=== PATIENT | male | born 2000 | race African-American/Black ===

== ENCOUNTER 2019-04-14 18:56 | Emergency (ER) | payer OTHER ==
[~2019-04-14] VITALS: Ht 182.9 cm; Wt 72.6 kg
[2019-04-14] MEDS ORDERED: BUPIVACAINE MPF 0.5% 10 ML VIAL. IJ ONE (19:30)
[2019-04-14] MEDS ORDERED: HYDROcodone/APAP 5/325MG 1 TAB TABLET PO ONE (19:30)
[2019-04-14 19:37] VITALS: BP 140/84
[2019-04-14] MEDS ORDERED: DIPHTH,PERTUSS(ACELL),TET TOX 0.5 ML DISP.SYRIN. VAX IM ONE (21:15)
--- NOTE | 2019-04-14 21:30 | PHYS DOC ---
Past Medical History Past Medical History: No Pertinent History (KVNG MAHMOOD APRN) Past Surgical History: No Surgical History (KVNG MAHMOOD APRN) Alcohol Use: Occasionally Drug Use: Marijuana (KVNG MAHMOOD APRN) Adult General Chief Complaint Chief Complaint: TOE PROBLEM HPI HPI Patient is a 19 year old AA male who presents to the ER with complaints of left great toe pain after dropping a refrigerator onto his left great toe prior to arrival. Pt denies any numbness or tingling of his foot, he denies any foot pain or decreased ROM. Currently, his pain is a 10/10 on the pain scale he did not take any medications prior to arrival. (KVNG MAHMOOD APRN) Review of Systems Review of Systems Constitutional: Denies fever or chills [] Musculoskeletal: see history of present illness Integument: Denies rash or skin lesions [] Neurologic: Denies headache, focal weakness or sensory changes [] (KVNG MAHMOOD APRN) Current Medications Current Medications Current Medications Medications (Trade) Dose Ordered Sig/Donna Start Time Stop Time Status Last Admin Dose Admin Acetaminophen/ Hydrocodone Bitart (Lortab 5/325) 1 tab 1X ONCE 04/14/19 19:30 04/14/19 19:44 DC 04/14/19 19:30 1 TAB Bupivacaine HCl (Sensorcaine Mpf 0.5%) 10 ml 1X ONCE 04/14/19 19:30 04/14/19 19:44 DC 04/14/19 19:30 10 ML Diphtheria/ Tetanus/Acell Pertussis (Boostrix) 0.5 ml ONCE ONCE 04/14/19 21:15 04/14/19 21:16 DC 04/14/19 21:15 0.5 ML (DWIGHT DERAS MD) Allergies Allergies Allergies Coded Allergies Type Severity Reaction Last Updated Verified No Known Drug Allergies 04/14/19 No (DWIGHT DERAS MD) Physical Exam Physical Exam Constitutional: Well developed, well nourished, no acute distress, non-toxic appearance. [] HENT: Normocephalic, atraumatic, bilateral external ears normal, nose normal. [] Eyes: conjunctiva normal, no discharge. [] Lungs & Thorax: Respirations even and unlabored, no retractions, no respiratory distress Skin: Warm, dry, no erythema, no rash; left great toenail avulsed from the nailbed bleeding controlled with dressing in place Extremities: No cyanosis, no clubbing, ROM intact, no edema; left great toe tenderness to palpation, no crepitus, no deformity,. [] Neurologic: Alert and oriented X 3, normal motor function, normal sensory function, no focal deficits noted. [] Psychologic: Affect normal, judgement normal, mood normal. [] (KVNG MAHMOOD APRN) Current Patient Data Vital Signs Vital Signs Date Time Temp Pulse Resp B/P (MAP) Pulse Ox O2 Delivery O2 Flow Rate FiO2 04/14/19 19:37 98.5 58 15 140/84 (102) 99 Room Air 98.5 (DWIGHT DERAS MD) EKG EKG [] (KVNG MAHMOOD APRN) Radiology/Procedures Radiology/Procedures Left great toe negative for any acute fracture or findings read by Dr. Deras[] The left great toe was blocked using half percent bupivacaine, approximately 5 mmol was injected, the toenail was lifted from the nail bed and cut away from the lateral aspect of the nailbed with a 11 blade scalpel. Patient tolerated the procedure well, there was minimal bleeding. The toe was then scrubbed with normal saline and a surgical scrub, Xeroform gauze was placed over the nailbed following procedure. (KVNG MAHMOOD APRN) Course & Med Decision Making Course & Med Decision Making Pertinent Labs and Imaging studies reviewed. (See chart for details) [] (KVNG MAHMOOD APRN) Course & Med Decision Making Staff Physician Addendum: I was working in the ER during the course of this patient's visit. I was available for consultation as needed, but I was not directly involved in the care of this patient. (DWIGHT DERAS MD) Dragon Disclaimer Dragon Disclaimer This electronic medical record was generated, in whole or in part, using a voice recognition dictation system. (KVNG MAHMOOD APRN) Departure Departure Impression: Primary Impression: Toenail avulsion Additional Impression: Need for tetanus, diphtheria, and acellular pertussis (Tdap) vaccine Disposition: HOME, SELF-CARE Condition: STABLE Referrals: UNKNOWN PCP NAME (PCP) Patient Instructions: Toenail Removal, VIS, Tetanus, Diphtheria (Td); Tetanus, Diphtheria, Pertussis (Tdap) - [facility] Additional Instructions: Epsom salt soaks three times a day and as needed. Keep the site covered and clean. Follow up with your primary care doctor for wound re-check in 2-3 days, return to the ER if symptoms worsen. Problem Qualifiers Primary Impression: Toenail avulsion Encounter type: initial encounter Qualified Codes: S91.209A - Unspecified open wound of unspecified toe(s) with damage to nail, initial encounter KVNG MAHMOOD APRN Apr 14, 2019 21:30 DWIGHT DERAS MD Apr 15, 2019 03:47
--- NOTE | 2019-04-15 02:08 | RAD ---
Three-view left first toe radiographs 04/14/2019 CLINICAL HISTORY: Left first toe pain after dropping a refrigerator on it. An AP digital radiographs of the left foot was obtained. Oblique and lateral digital radiographs of the left first toe were obtained. Soft tissue swelling is seen involving the left first toe. No fracture or dislocation is seen. IMPRESSION: Soft tissue injury. No fracture or dislocation of the left first toe is seen. Electronically signed by: Delta Gaytan MD (04/15/2019 2:06 AM) [facility]
== END 2019-04-14 21:38 | disposition home or self-care (01) ==
LOC: ER 18:56
DX: S91.202A Unspecified open wound of left great toe with damage to nail, initial encounter (principal); W20.8XXA Other cause of strike by thrown, projected or falling object, initial encounter; Y93.89 Activity, other specified; Y92.89 Other specified places as the place of occurrence of the external cause; Y99.8 Other external cause status
CPT/HCPCS: 11730; 73660; 90471; 90715; 99284